=== PATIENT | female | born 1995 | race African-American/Black ===

== ENCOUNTER 2024-04-26 09:39 | Emergency (ER) | payer OTHER, SELFPAY | END 2024-04-26 10:01 | LOC: EEVIPCON 09:39 → BURERS 09:39 | DX: S00.81XA Abrasion of other part of head, initial encounter (principal); F29 Unspecified psychosis not due to a substance or known physiological condition; Z02.89 Encounter for other administrative examinations; Y04.0XXA Assault by unarmed brawl or fight, initial encounter | CPT/HCPCS: 99284 ==